=== PATIENT | female | born 1965 | race Caucasian/White ===

== ENCOUNTER 2017-05-14 15:26 | Emergency (ER) | payer OTHER, BC ==
[~2017-05-14] VITALS: Ht 162.6 cm; Wt 114.8 kg
[~2017-05-14 15:26] MED LIST: ADVIL200 M1 PO; CLARITIN-D 121 EACH PO; PRILOSEC OTC20 MG PO; ZESTRIL10 MG PO
[2017-05-14] MEDS ORDERED: LIDODERM 5% P1 PATCH TD (18:35)
[2017-05-14] MEDS ORDERED: FLEXERIL10 MG PO (18:35)
[2017-05-14] MEDS ORDERED: PREDNISONE10 MG PO (18:35)
[2017-05-14 18:48] VITALS: BP 156/79
== END 2017-05-14 18:36 | disposition home or self-care (01) ==
LOC: EME 15:26
DX: S39.012A Strain of muscle, fascia and tendon of lower back, initial encounter (principal); M54.42 Lumbago with sciatica, left side; X58.XXXA Exposure to other specified factors, initial encounter; Y93.E9 Activity, other interior property and clothing maintenance; Y92.000 Kitchen of unspecified non-institutional (private) residence as the place of occurrence of the external cause; I10 Essential (primary) hypertension; H91.90 Unspecified hearing loss, unspecified ear
CPT/HCPCS: 99281; 99284; J7512